=== PATIENT | male | born 1975 | race Caucasian/White ===

== ENCOUNTER 2023-12-11 07:36 | Observation (INO) | payer BC, OTHER ==
[2023-12-11] MEDS ORDERED: Ondansetron PF 4 MG/2 ML Vial ONE (08:16)
[2023-12-11] MEDS ORDERED: Morphine 4 MG/ML VIAL ONE ×2 (08:16→10:07)
[2023-12-11 08:52] LABS: #Basophils 0.04 10x3/uL (0.0-0.2); %Basophils 0.2 % (0.0-1.0); %Eosinophils 0.4 % (0.0-10.0); %Lymphocytes 15.6 % (21.0-51.0); %Monocytes 7.6 % (0.0-10.0); %Neutrophils 75.4 % (42.0-75.0); Hematocrit 47.5 % (42.0-52.0); Hemoglobin 17.2 g/dL (14.0-18.0); Mean Corpuscular HGB CONC 36.2 g/dL (32.0-36.0); Mean Corpuscular Hemoglobin 31.2 pg (27.0-31.0); Mean Corpuscular Volume 86.1 fL (78.0-98.0); Mean Platelet Volume 9.4 fL (7.4-10.4); Platelet Count 271 10x3/uL (130-400); RBC Distribution Width 12.6 % (11.5-14.5); Red Blood Cell (RBC) Count 5.52 mill/uL (4.70-6.10)
[2023-12-11 09:12] LABS: ALT (SGPT) 19 U/L (8-55); AST (SGOT) 12 U/L (5-34); Albumin 3.9 g/dL (3.5-5.0); Alkaline Phosphatase 134 U/L (40-110); Anion Gap 16 mmol/L (10-20); BUN (Urea Nitrogen) 13 mg/dL (8.9-20.6); Calc. Creatinine Clearance 0 mL/min (70-130); Calcium 9.2 mg/dL (7.8-10.44); Carbon Dioxide 23 mmol/L (22-29); Chloride 103 mmol/L (98-107); Estimated GFR 74; Globulin 3.3 g/dL (2.4-3.5); Glucose 113 mg/dL (70-105); Lipase 23 U/L (8-78); Potassium 3.9 mmol/L (3.5-5.1); Protein, Total 7.2 g/dL (6.0-8.3); Sodium 138 mmol/L (136-145)
[2023-12-11 09:16] LABS: Bacteria/HPF None Seen HPF (None Seen); Bilirubin Negative (Negative); Blood, Urine Trace (Negative); CAUTI Indications for Culture Dysuria,urgency,freq; Clarity Clear (Clear); Glucose, Urine (Dipstick) Normal (Negative); Ketone, Urine Negative (Negative); Leukocyte Negative Leu/uL (Negative); Nitrite Negative (Negative); Protein, Urine (Dipstick) 10 mg/dL (Neg-Trace); RBC/HPF 0-3 HPF (0-3); Specific Gravity, Urine 1.029 (1.002-1.036); Squamous Epithelial None Seen HPF (0-3); Urobilinogen Normal mg/dL (Less than 2); WBC/HPF 0-3 HPF (0-3); pH, Urine 5.5 (5.0-9.0)
[2023-12-11 09:23] LABS: Urine Culture Reflex No No
[2023-12-11] MEDS ORDERED: Sodium Chloride 0.9% 100 ML ONE (09:28)
[2023-12-11] MEDS ORDERED: Piperacillin/Tazobactam 4.5 GM VIAL ONE (09:28)
[2023-12-11] MEDS ORDERED: Dextrose 5% in Water 1,000 ML IV PRN ×2 (09:44→20:28)
[2023-12-11] MEDS ORDERED: HYDROcodone/Acetaminophen 10/325 mg Tablet PO PRN ×2 (09:44→20:28)
[2023-12-11] MEDS ORDERED: Glucagon 1 MG/ML KIT IM PRN ×2 (09:44→20:28)
[2023-12-11] MEDS ORDERED: Ondansetron PF 4 MG/2 ML Vial IVP PRN ×2 (09:44→20:28)
[2023-12-11] MEDS ORDERED: Acetaminophen 325 MG TAB PO PRN (09:44)
[2023-12-11] MEDS ORDERED: hydrALAZINE 20 MG/ML VIAL SLOW IVP PRN (09:44)
[2023-12-11] MEDS ORDERED: Ipratropium/Albuterol 3 ML NEB NEB PRN (09:44)
[2023-12-11] MEDS ORDERED: Dextrose 50% Abboject 50 ML SYRINGE SLOW IVP PRN ×2 (09:44→20:28)
[2023-12-11] MEDS ORDERED: Iopamidol-370 76% 500 ML MDV (1 ML CHARGE) ONE (10:43)
[2023-12-11 11:16] VITALS: BMI 27.3
[2023-12-11] MEDS: Lactated Ringer's 1,000 ML IV SCH (12:39)
[2023-12-11] MEDS: Morphine 2 MG/ML VIAL SLOW IVP PRN (16:54)
[2023-12-11] MEDS: Piperacillin/Tazobactam 3.375 GM in Sodium Chloride 0.9% 100 ML IVPB SCH (16:55)
[2023-12-11] MEDS ORDERED: SUGAMMADEX SODIUM 200 MG/2 ML VIAL ONE ×2 (17:56→20:09)
[2023-12-11] MEDS ORDERED: fentaNYL PF 100 MCG/2 ML SYRINGE ONE ×2 (17:56→19:43)
[2023-12-11] MEDS ORDERED: PROPOFOL 40 ML ONE (17:56)
[2023-12-11] MEDS ORDERED: Lidocaine 2% PF 5 ML VIAL ONE (17:56)
[2023-12-11] MEDS ORDERED: Dexamethasone 20 MG/5 ML VIAL ONE (18:40)
[2023-12-11] MEDS ORDERED: SUCCINYLCHOLINE/SOD CL,ISO/PF 200 MG/10 ML SYRINGE FS ONE (18:40)
[2023-12-11] MEDS ORDERED: Rocuronium Bromide 10 MG/ML (10ML VIAL) ONE (18:40)
[2023-12-11 20:25] LABS: INR-International Normal Ratio 1.1; Prothrombin Time 13.9 sec (12.0-14.7)
[2023-12-11] MEDS ORDERED: Ondansetron HCl/PF 4 MG/2 ML Vial IVP PRN (20:25)
[2023-12-11] MEDS ORDERED: Promethazine HCl 25 MG/ML VIAL IM PRN (20:25)
[2023-12-11] MEDS ORDERED: Piperacillin/Tazobactam 3.375 GM in Sodium Chloride 0.9% 100 ML IVPB SCH (22:00)
[2023-12-11] MEDS: Famotidine 20 MG TAB PO SCH ×2 (22:14→22:15)
[2023-12-11] MEDS: Docusate 100 MG CAP PO SCH (22:14)
[2023-12-11] MEDS: Famotidine/PF 20 mg/2ml Vial SLOW IVP SCH (22:15)
[2023-12-12] MEDS ORDERED: Piperacillin/Tazobactam 3.375 GM in Sodium Chloride 0.9% 100 ML IVPB SCH (00:30)
[2023-12-12 00:50] LABS: Hemoglobin 14.8 g/dL (14.0-18.0)
[2023-12-12 01:12] LABS: Hematocrit 43.9 % (42.0-52.0); Hemoglobin 15.1 g/dL (14.0-18.0); Mean Corpuscular HGB CONC 34.4 g/dL (32.0-36.0); Mean Corpuscular Hemoglobin 30.9 pg (27.0-31.0); Mean Platelet Volume 9.8 fL (7.4-10.4); Platelet Count 239 10x3/uL (130-400); RBC Distribution Width 12.8 % (11.5-14.5); Red Blood Cell (RBC) Count 4.88 mill/uL (4.70-6.10)
[2023-12-12] MEDS: traMADol HCl 50 MG TAB PO PRN (04:30)
[2023-12-12 05:51] LABS: #Basophils Less than 0.03 10x3/uL (0.0-0.2); #Eosinphils Less than 0.03 10x3/uL (0.0-0.7); %Basophils 0.2 % (0.0-1.0); %Lymphocytes 16.1 % (21.0-51.0); %Monocytes 3.9 % (0.0-10.0); %Neutrophils 79.3 % (42.0-75.0); Hematocrit 45.6 % (42.0-52.0); Hemoglobin 15.5 g/dL (14.0-18.0); Mean Corpuscular Hemoglobin 31.3 pg (27.0-31.0); Mean Corpuscular Volume 91.9 fL (78.0-98.0); Mean Platelet Volume 9.8 fL (7.4-10.4); Platelet Count 273 10x3/uL (130-400); RBC Distribution Width 12.7 % (11.5-14.5); Red Blood Cell (RBC) Count 4.96 mill/uL (4.70-6.10)
[2023-12-12 06:16] LABS: Anion Gap 16 mmol/L (10-20); BUN (Urea Nitrogen) 13 mg/dL (8.9-20.6); Calc. Creatinine Clearance 104 mL/min (70-130); Calcium 8.7 mg/dL (7.8-10.44); Carbon Dioxide 21 mmol/L (22-29); Chloride 105 mmol/L (98-107); Estimated GFR 82; Glucose 117 mg/dL (70-105); Potassium 4.2 mmol/L (3.5-5.1); Sodium 138 mmol/L (136-145)
[2023-12-13 07:43] LABS: #Basophils Less than 0.03 10x3/uL (0.0-0.2); %Basophils 0.2 % (0.0-1.0); %Eosinophils 3.3 % (0.0-10.0); %Monocytes 7.1 % (0.0-10.0); Hematocrit 39.6 % (42.0-52.0); Hemoglobin 13.7 g/dL (14.0-18.0); Mean Corpuscular HGB CONC 34.6 g/dL (32.0-36.0); Mean Corpuscular Hemoglobin 31.6 pg (27.0-31.0); Mean Corpuscular Volume 91.5 fL (78.0-98.0); Mean Platelet Volume 9.3 fL (7.4-10.4); Platelet Count 231 10x3/uL (130-400); RBC Distribution Width 12.4 % (11.5-14.5); Red Blood Cell (RBC) Count 4.33 mill/uL (4.70-6.10)
[2023-12-13 11:43] VITALS: BP 116/75; TEMP 98.6
== END 2023-12-13 12:05 | disposition home or self-care (01) ==
LOC: ERS 07:36 → SURG A 11:06
PROVIDERS: ADMIT Surgery; ATTEND Surgery
PROC: 0DTJ4ZZ Resection of Appendix, Percutaneous Endoscopic Approach (ICD-10-PCS; principal; 2023-12-13)
DX: K35.80 Unspecified acute appendicitis (principal); K51.90 Ulcerative colitis, unspecified, without complications
CPT/HCPCS: 36415; 74177; 80048; 80053; 81001; 83605; 83690; 85025; 85610; 88304; 96361; 96365; 96375; 96376; C1713; G0378; J1100; J2001; J2270; J2272; J2405; J2543; J2704; J3490; J7120; Q9967; S0028

== ENCOUNTER 2025-04-23 19:57 | Inpatient (IN) | payer OTHER ==
[~2025-04-23 19:57] MED LIST: Iopamidol-370 76% 500 ML MDV (1 ML CHARGE) ONE
[2025-04-23 20:30] LABS: Hematocrit 38.5 % (42.0-52.0); Hemoglobin 13.4 g/dL (14.0-18.0); Mean Corpuscular Hemoglobin 30.4 pg (27.0-31.0); Mean Corpuscular Volume 87.3 fL (78.0-98.0); Platelet Count 511 10x3/uL (130-400); Red Blood Cell (RBC) Count 4.41 mill/uL (4.70-6.10); White Blood Cell (WBC) Count 13.95 10x3/uL (4.8-10.8)
[2025-04-23] MEDS ORDERED: HYDROmorphone 0.5 MG/0.5 ML SYRINGE ONE (20:40)
[2025-04-23] MEDS ORDERED: Ondansetron PF 4 MG/2 ML Vial ONE (20:40)
[2025-04-23 20:41] LABS: Lipase 10.0 U/L (8-78)
[2025-04-23 20:43] LABS: ALT (SGPT) 36 U/L (Less than 45); AST (SGOT) 25 U/L (11-34); Albumin 2.5 g/dL (3.1-4.5); Alkaline Phosphatase 103 U/L (40-110); Anion Gap 18 mmol/L (10-20); BUN (Urea Nitrogen) 12 mg/dL (8.9-20.6); Bilirubin, Total 0.7 mg/dL (0.3-1.2); Calc. Creatinine Clearance 0 mL/min (70-130); Calcium 8.5 mg/dL (7.8-10.44); Carbon Dioxide 22 mmol/L (22-29); Chloride 98 mmol/L (98-107); Globulin 3.9 g/dL (2.4-3.5); Glucose 139 mg/dL (70-105); Potassium 4.1 mmol/L (3.5-5.1); Sodium 134 mmol/L (136-145)
[2025-04-23 20:50] LABS: Anisocytosis SLIGHT = 6-15 cells HPF (0-5); Burr Cells SLIGHT = 2-5 cells HPF (0-1); Dohle Bodies SLIGHT; Platelet Adequacy Comment Platelets Increased; Polychromasia SLIGHT = 2-3 cells HPF (0-2); Smudge Cells 7.6 %
[2025-04-23 20:52] LABS: CRP, High Sensitivity at Bryan 17.04 mg/dL (< or = 0.5)
[2025-04-24] MEDS: Ondansetron PF 4 MG/2 ML Vial IVP PRN (01:44)
[2025-04-24 03:27] LABS: #Basophils 0.05 10x3/uL (0.0-0.2); #Eosinophils Less than 0.03 10x3/uL (0.0-0.7); #Monocytes 1.13 10x3/uL (0.11-0.59); #Neutrophils 9.78 10x3/uL (1.40-6.50); %Basophils 0.4 % (0.0-1.0); %Eosinophils 0.1 % (0.0-10.0); %Lymphocytes 10.2 % (21.0-51.0); %Monocytes 9.2 % (0.0-10.0); %Neutrophils 79.5 % (42.0-75.0); Hematocrit 37.0 % (42.0-52.0); Hemoglobin 12.3 g/dL (14.0-18.0); Mean Corpuscular Hemoglobin 29.9 pg (27.0-31.0); Mean Corpuscular Volume 90.0 fL (78.0-98.0); Platelet Count 455 10x3/uL (130-400); Red Blood Cell (RBC) Count 4.11 mill/uL (4.70-6.10); White Blood Cell (WBC) Count 12.29 10x3/uL (4.8-10.8)
[2025-04-24 03:47] LABS: ALT (SGPT) 31 U/L (Less than 45); AST (SGOT) 17 U/L (11-34); Albumin 2.3 g/dL (3.1-4.5); Alkaline Phosphatase 87 U/L (40-110); Anion Gap 15 mmol/L (10-20); BUN (Urea Nitrogen) 10 mg/dL (8.9-20.6); Bilirubin, Total 0.5 mg/dL (0.3-1.2); Calc. Creatinine Clearance 117 mL/min (70-130); Calcium 8.1 mg/dL (7.8-10.44); Carbon Dioxide 24 mmol/L (22-29); Chloride 101 mmol/L (98-107); Globulin 3.4 g/dL (2.4-3.5); Glucose 128 mg/dL (70-105); Potassium 4.6 mmol/L (3.5-5.1); Sodium 135 mmol/L (136-145)
[2025-04-24] MEDS ORDERED: HYDROcodone/Acetaminophen 5/325 mg Tablet PO PRN ×2 (09:49→14:22)
[2025-04-24] MEDS: Pantoprazole 40 MG DR.TAB PO SCH (12:18)
[2025-04-24] MEDS: HYDROmorphone 0.5 MG/0.5 ML SYRINGE SLOW IVP PRN (14:56)
[2025-04-24] MEDS: Pantoprazole 40 MG VIAL IVP SCH ×2 (14:58→20:34)
[2025-04-24] MEDS: Senokot S 8.6-50 MG TAB PO SCH (20:32)
[2025-04-24] MEDS: HYDROcodone/Acetaminophen 5/325 mg Tablet PO PRN (20:33)
[2025-04-24] MEDS: Ciprofloxacin Lactate/D5W 400 MG in Premix 1 BAG IVPB SCH (20:34)
[2025-04-24] MEDS: Heparin 5,000 UNITS/ML VIAL SC SCH (20:34)
[2025-04-24] MEDS ORDERED: Senokot S 8.6-50 MG TAB PO SCH (21:00)
[2025-04-25 00:35] LABS: Campy jejuni + coli by PCR Negative (Negative); STEC Shiga Toxin 1+2 Negative (Negative); Salmonella spp. by PCR Negative (Negative); Shigella spp + EIEC by PCR Negative (Negative)
[2025-04-25 05:23] VITALS: BMI 25.7
[2025-04-25 08:23] LABS: HBSAB Concentration Less than 8.00 mIU/mL; Hep B Surf Ag NONREACTIVE S/CO (NonReactive); Hep C IgG Ab NONREACTIVE S/CO (NonReactive); Hep C Index 0.09 S/CO (0-0.79)
[2025-04-25 08:29] LABS: Hematocrit 37.2 % (42.0-52.0); Hemoglobin 12.4 g/dL (14.0-18.0); Mean Corpuscular Hemoglobin 29.8 pg (27.0-31.0); Mean Corpuscular Volume 89.4 fL (78.0-98.0); Platelet Count 466 10x3/uL (130-400); Red Blood Cell (RBC) Count 4.16 mill/uL (4.70-6.10); White Blood Cell (WBC) Count 11.16 10x3/uL (4.8-10.8)
[2025-04-25 08:34] LABS: Anion Gap 13 mmol/L (10-20); BUN (Urea Nitrogen) 12 mg/dL (8.9-20.6); Calc. Creatinine Clearance 108 mL/min (70-130); Calcium 8.3 mg/dL (7.8-10.44); Carbon Dioxide 25 mmol/L (22-29); Chloride 101 mmol/L (98-107); Glucose 159 mg/dL (70-105); Iron 19 ug/dL (65-175); Iron Binding Capacity, Total 151 mcg/dL (261-462); Potassium 4.1 mmol/L (3.5-5.1); Sodium 135 mmol/L (136-145)
[2025-04-25 08:42] LABS: Vitamin B12 808 pg/mL (211-911)
[2025-04-25] MEDS: Cholecalciferol 1,000 UNITS (25 MCG) TAB PO SCH (09:11)
[2025-04-25] MEDS: Dicyclomine 10 MG CAP PO SCH (09:14)
[2025-04-25 09:31] LABS: Burr Cells SLIGHT = 2-5 cells HPF (0-1); Macrocytosis SLIGHT = 6-15 cells HPF (0-5); Platelet Adequacy Comment Platelets Increased; Polychromasia SLIGHT = 2-3 cells HPF (0-2); Smudge Cells 1.0 %
[2025-04-25] MEDS: Acetaminophen 325 MG TAB PO PRN (17:15)
[2025-04-26 05:42] LABS: Hematocrit 39.0 % (42.0-52.0); Hemoglobin 12.9 g/dL (14.0-18.0); Mean Corpuscular Hemoglobin 29.4 pg (27.0-31.0); Mean Corpuscular Volume 88.8 fL (78.0-98.0); Platelet Count 487 10x3/uL (130-400); Red Blood Cell (RBC) Count 4.39 mill/uL (4.70-6.10); White Blood Cell (WBC) Count 10.88 10x3/uL (4.8-10.8)
[2025-04-26 05:52] LABS: Anion Gap 16 mmol/L (10-20); BUN (Urea Nitrogen) 11 mg/dL (8.9-20.6); Calc. Creatinine Clearance 113 mL/min (70-130); Calcium 8.5 mg/dL (7.8-10.44); Carbon Dioxide 23 mmol/L (22-29); Chloride 99 mmol/L (98-107); Glucose 121 mg/dL (70-105); Potassium 4.4 mmol/L (3.5-5.1); Sodium 134 mmol/L (136-145)
[2025-04-26 06:14] LABS: Platelet Adequacy Comment Platelets Increased; RBC Morphology Within Normal Limits; Smudge Cells 5.0 %
[2025-04-27 08:29] LABS: Anion Gap 16 mmol/L (10-20); BUN (Urea Nitrogen) 11 mg/dL (8.9-20.6); Calc. Creatinine Clearance 121 mL/min (70-130); Calcium 8.5 mg/dL (7.8-10.44); Carbon Dioxide 24 mmol/L (22-29); Chloride 99 mmol/L (98-107); Glucose 111 mg/dL (70-105); Potassium 4.1 mmol/L (3.5-5.1); Sodium 135 mmol/L (136-145)
[2025-04-27 08:39] LABS: Hematocrit 37.8 % (42.0-52.0); Hemoglobin 12.9 g/dL (14.0-18.0); Mean Corpuscular Hemoglobin 30.1 pg (27.0-31.0); Mean Corpuscular Volume 88.3 fL (78.0-98.0); Platelet Count 457 10x3/uL (130-400); Red Blood Cell (RBC) Count 4.28 mill/uL (4.70-6.10); White Blood Cell (WBC) Count 10.30 10x3/uL (4.8-10.8)
[2025-04-27 09:21] LABS: Macrocytosis SLIGHT = 6-15 cells HPF (0-5); Platelet Adequacy Comment Platelets Increased; Polychromasia SLIGHT = 2-3 cells HPF (0-2); Smudge Cells 7.0 %; Toxic Granulation SLIGHT
[2025-04-27] MEDS ORDERED: Iopamidol-370 76% 500 ML MDV (1 ML CHARGE) ONE (14:43)
[2025-04-27] MEDS: Dicyclomine 10 MG CAP PO SCH (22:14)
[2025-04-28 05:30] LABS: Hematocrit 40.6 % (42.0-52.0); Hemoglobin 14.0 g/dL (14.0-18.0); Mean Corpuscular Hemoglobin 30.0 pg (27.0-31.0); Mean Corpuscular Volume 87.1 fL (78.0-98.0); Platelet Count 481 10x3/uL (130-400); Red Blood Cell (RBC) Count 4.66 mill/uL (4.70-6.10); White Blood Cell (WBC) Count 11.56 10x3/uL (4.8-10.8)
[2025-04-28 05:40] LABS: Anion Gap 17 mmol/L (10-20); BUN (Urea Nitrogen) 14 mg/dL (8.9-20.6); Calc. Creatinine Clearance 108 mL/min (70-130); Calcium 8.5 mg/dL (7.8-10.44); Carbon Dioxide 22 mmol/L (22-29); Chloride 98 mmol/L (98-107); Glucose 120 mg/dL (70-105); Potassium 4.2 mmol/L (3.5-5.1); Sodium 133 mmol/L (136-145)
[2025-04-28 06:00] LABS: Platelet Adequacy Comment Platelets Increased; RBC Morphology Within Normal Limits; Smudge Cells 4.9 %; Toxic Granulation SLIGHT
[2025-04-28] MEDS: Senokot S 8.6-50 MG TAB PO SCH (09:13)
[2025-04-29 06:05] LABS: Hematocrit 38.6 % (42.0-52.0); Hemoglobin 13.0 g/dL (14.0-18.0); Mean Corpuscular Hemoglobin 29.9 pg (27.0-31.0); Mean Corpuscular Volume 88.7 fL (78.0-98.0); Platelet Count 449 10x3/uL (130-400); Red Blood Cell (RBC) Count 4.35 mill/uL (4.70-6.10); White Blood Cell (WBC) Count 11.02 10x3/uL (4.8-10.8)
[2025-04-29 06:12] LABS: ALT (SGPT) 16 U/L (Less than 45); AST (SGOT) 14 U/L (11-34); Albumin 2.1 g/dL (3.1-4.5); Alkaline Phosphatase 62 U/L (40-110); Anion Gap 16 mmol/L (10-20); BUN (Urea Nitrogen) 16 mg/dL (8.9-20.6); Bilirubin, Total 0.4 mg/dL (0.3-1.2); Calc. Creatinine Clearance 104 mL/min (70-130); Calcium 8.5 mg/dL (7.8-10.44); Carbon Dioxide 28 mmol/L (22-29); Chloride 97 mmol/L (98-107); Globulin 3.5 g/dL (2.4-3.5); Glucose 117 mg/dL (70-105); Magnesium 2.0 mg/dL (1.6-2.6); Potassium 4.9 mmol/L (3.5-5.1); Sodium 136 mmol/L (136-145)
[2025-04-29 06:47] LABS: Platelet Adequacy Comment Platelets Normal; Polychromasia SLIGHT = 2-3 cells HPF (0-2); Smudge Cells 9.9 %
[2025-04-30 05:42] LABS: #Basophils 0.04 10x3/uL (0.0-0.2); #Eosinophils Less than 0.03 10x3/uL (0.0-0.7); #Monocytes 1.14 10x3/uL (0.11-0.59); #Neutrophils 8.43 10x3/uL (1.40-6.50); %Basophils 0.3 % (0.0-1.0); %Eosinophils 0.2 % (0.0-10.0); %Lymphocytes 16.4 % (21.0-51.0); %Monocytes 9.8 % (0.0-10.0); %Neutrophils 72.5 % (42.0-75.0); Hematocrit 38.2 % (42.0-52.0); Hemoglobin 12.9 g/dL (14.0-18.0); Mean Corpuscular Hemoglobin 29.9 pg (27.0-31.0); Mean Corpuscular Volume 88.6 fL (78.0-98.0); Platelet Count 505 10x3/uL (130-400); Red Blood Cell (RBC) Count 4.31 mill/uL (4.70-6.10); White Blood Cell (WBC) Count 11.62 10x3/uL (4.8-10.8)
[2025-04-30 06:00] LABS: Anion Gap 16 mmol/L (10-20); BUN (Urea Nitrogen) 16 mg/dL (8.9-20.6); Calc. Creatinine Clearance 119 mL/min (70-130); Calcium 8.4 mg/dL (7.8-10.44); Carbon Dioxide 26 mmol/L (22-29); Chloride 94 mmol/L (98-107); Glucose 111 mg/dL (70-105); Potassium 4.0 mmol/L (3.5-5.1); Sodium 132 mmol/L (136-145)
[2025-04-30] MEDS ORDERED: PROPOFOL 200 MG/20 ML VIAL ONE (09:05)
[2025-05-01 05:57] LABS: Hematocrit 38.2 % (42.0-52.0); Hemoglobin 12.8 g/dL (14.0-18.0); Mean Corpuscular Hemoglobin 29.8 pg (27.0-31.0); Mean Corpuscular Volume 89.0 fL (78.0-98.0); Platelet Count 454 10x3/uL (130-400); Red Blood Cell (RBC) Count 4.29 mill/uL (4.70-6.10); White Blood Cell (WBC) Count 12.63 10x3/uL (4.8-10.8)
[2025-05-01 06:04] LABS: Anion Gap 14 mmol/L (10-20); BUN (Urea Nitrogen) 14 mg/dL (8.9-20.6); Calc. Creatinine Clearance 113 mL/min (70-130); Calcium 8.2 mg/dL (7.8-10.44); Carbon Dioxide 28 mmol/L (22-29); Chloride 96 mmol/L (98-107); Glucose 102 mg/dL (70-105); Potassium 4.4 mmol/L (3.5-5.1); Sodium 134 mmol/L (136-145)
[2025-05-01 07:34] LABS: Platelet Adequacy Comment Platelets Increased; Polychromasia SLIGHT = 2-3 cells HPF (0-2)
[2025-05-02 05:57] LABS: Hematocrit 35.1 % (42.0-52.0); Hemoglobin 11.7 g/dL (14.0-18.0); Mean Corpuscular Hemoglobin 29.7 pg (27.0-31.0); Mean Corpuscular Volume 89.1 fL (78.0-98.0); Platelet Count 430 10x3/uL (130-400); Red Blood Cell (RBC) Count 3.94 mill/uL (4.70-6.10); White Blood Cell (WBC) Count 11.21 10x3/uL (4.8-10.8)
[2025-05-02 06:00] LABS: Anion Gap 13 mmol/L (10-20); BUN (Urea Nitrogen) 11 mg/dL (8.9-20.6); Calc. Creatinine Clearance 133 mL/min (70-130); Calcium 7.9 mg/dL (7.8-10.44); Carbon Dioxide 25 mmol/L (22-29); Chloride 96 mmol/L (98-107); Glucose 111 mg/dL (70-105); Potassium 4.2 mmol/L (3.5-5.1); Sodium 130 mmol/L (136-145)
[2025-05-02 06:28] LABS: Platelet Adequacy Comment Platelets Normal; RBC Morphology Within Normal Limits; Smudge Cells 19.4 %
[2025-05-02 14:37] LABS: CMV DNA-PCR Test Positive < 200 IU/mL (Negative)
[2025-05-02 15:19] VITALS: BMI 25.7
[2025-05-02 16:13] LABS: Routine O & P Final report (.)
[2025-05-03 05:23] LABS: Hematocrit 33.2 % (42.0-52.0); Hemoglobin 11.2 g/dL (14.0-18.0); Mean Corpuscular Hemoglobin 30.1 pg (27.0-31.0); Mean Corpuscular Volume 89.2 fL (78.0-98.0); Platelet Count 405 10x3/uL (130-400); Red Blood Cell (RBC) Count 3.72 mill/uL (4.70-6.10); White Blood Cell (WBC) Count 9.53 10x3/uL (4.8-10.8)
[2025-05-03 05:31] LABS: Anion Gap 13 mmol/L (10-20); BUN (Urea Nitrogen) 9 mg/dL (8.9-20.6); Calc. Creatinine Clearance 138 mL/min (70-130); Calcium 8.0 mg/dL (7.8-10.44); Carbon Dioxide 28 mmol/L (22-29); Chloride 96 mmol/L (98-107); Glucose 165 mg/dL (70-105); Potassium 4.1 mmol/L (3.5-5.1); Sodium 133 mmol/L (136-145)
[2025-05-03 06:37] LABS: Burr Cells SLIGHT = 2-5 cells HPF (0-1); Macrocytosis SLIGHT = 6-15 cells HPF (0-5); Platelet Adequacy Comment Platelets Normal; Polychromasia SLIGHT = 2-3 cells HPF (0-2); Smudge Cells 2.0 %
[2025-05-04 05:28] LABS: Hematocrit 33.5 % (42.0-52.0); Hemoglobin 11.2 g/dL (14.0-18.0); Mean Corpuscular Hemoglobin 29.9 pg (27.0-31.0); Mean Corpuscular Volume 89.3 fL (78.0-98.0); Platelet Count 458 10x3/uL (130-400); Red Blood Cell (RBC) Count 3.75 mill/uL (4.70-6.10); White Blood Cell (WBC) Count 9.88 10x3/uL (4.8-10.8)
[2025-05-04 05:53] LABS: Anion Gap 13 mmol/L (10-20); BUN (Urea Nitrogen) 8 mg/dL (8.9-20.6); Calc. Creatinine Clearance 150 mL/min (70-130); Calcium 8.3 mg/dL (7.8-10.44); Carbon Dioxide 26 mmol/L (22-29); Chloride 101 mmol/L (98-107); Glucose 130 mg/dL (70-105); Potassium 4.3 mmol/L (3.5-5.1); Sodium 136 mmol/L (136-145)
[2025-05-05] MEDS: HYDROcodone/Acetaminophen 5/325 mg Tablet PO PRN (11:00)
[2025-05-07] MEDS: Simethicone Chewable 80 MG TAB PO PRN (00:54)
[2025-05-09 07:07] LABS: Hematocrit 32.1 % (42.0-52.0); Hemoglobin 10.6 g/dL (14.0-18.0); Mean Corpuscular Hemoglobin 29.7 pg (27.0-31.0); Mean Corpuscular Volume 89.9 fL (78.0-98.0); Platelet Count 441 10x3/uL (130-400); Red Blood Cell (RBC) Count 3.57 mill/uL (4.70-6.10); White Blood Cell (WBC) Count 5.95 10x3/uL (4.8-10.8)
[2025-05-09 07:23] LABS: Anion Gap 14 mmol/L (10-20); BUN (Urea Nitrogen) 12 mg/dL (8.9-20.6); Calc. Creatinine Clearance 176 mL/min (70-130); Calcium 8.2 mg/dL (7.8-10.44); Carbon Dioxide 26 mmol/L (22-29); Chloride 98 mmol/L (98-107); Glucose 110 mg/dL (70-105); Potassium 4.2 mmol/L (3.5-5.1); Sodium 134 mmol/L (136-145)
[2025-05-10 13:11] VITALS: BP 120/73; TEMP 98.8
== END 2025-05-10 14:07 | disposition home or self-care (01) | DRG 386 ==
LOC: ERS 19:57 → T4-B 04-24 00:33 → OBSVTOIN 04-25 10:00
PROVIDERS: ADMIT Internal Medicine; ATTEND Hospitalist
PROC: 3E03329 Introduction of Other Anti-infective into Peripheral Vein, Percutaneous Approach (ICD-10-PCS; 2025-04-24)
PROC: 0DBN8ZX Excision of Sigmoid Colon, Via Natural or Artificial Opening Endoscopic, Diagnostic (ICD-10-PCS; principal; 2025-04-30)
DX: K51.90 Ulcerative colitis, unspecified, without complications (principal); E44.0 Moderate protein-calorie malnutrition; R65.10 Systemic inflammatory response syndrome (SIRS) of non-infectious origin without acute organ dysfunction; E87.1 Hypo-osmolality and hyponatremia; D72.829 Elevated white blood cell count, unspecified; R73.9 Hyperglycemia, unspecified; R19.7 Diarrhea, unspecified; D64.9 Anemia, unspecified; E87.6 Hypokalemia; E55.9 Vitamin D deficiency, unspecified; Z98.890 Other specified postprocedural states; Z79.899 Other long term (current) drug therapy
CPT/HCPCS: 36415; 36416; 71046; 74018; 74177; 80048; 80053; 82306; 82607; 82728; 83036; 83540; 83550; 83605; 83630; 83690; 83735; 84100; 85025; 85027; 86141; 86480; 86706; 86708; 86803; 87177; 87209; 87324; 87328; 87329; 87340; 87449; 87497; 87505; 88305; 88342; 96361; 96372; 96374; 96375; 96376; G0378; J0744; J1171; J1570; J1644; J2270; J2405; J2470; J2550; J2704; J2919; J3010; J7030; J7050; J7120; Q0162; Q5104; Q9967